=== PATIENT | female | born 1960 | race Caucasian/White ===

== ENCOUNTER 2016-10-26 18:06 | Inpatient (IN) ==
[2016-10-26] MEDS ORDERED: ALBUTEROL/IPRATROPIUM 3 ML NEB RESP TX STA (18:27)
[2016-10-26] MEDS ORDERED: NALOXONE 0.4 MG/ML VIAL IV STA (18:27)
[2016-10-26] MEDS ORDERED: NITROGLYCERIN 2% OINT 1 INCH/GM PACK TOP STA (18:27)
--- NOTE | 2016-10-26 18:35 | Emergency Department Note ---
Arrival - Arrival Chief Complaint: Altered Mental Status Stated Complaint: ALTERED ED Nursing Triage Note: PT BROUGHT BY EMS FOR EVALUATION OF ALTERED MENTAL STATUS SINCE APPROX 1600. REPORTEDLY PT WAS AT [facility] FOR PNEUMONIA, AK, AND CVA? PT LEFT [facility] AMA THIS MORNING. PT WAS PICKED UP AT A FRIENDS HOUSE AROUND 1200 BY FAMILY AND HAS BECOME MORE ALTERED IN THE PAST 2 HOURS. PT'S SPEECH IS SLURRED. NO FACIAL DROOP OR EXTREMITY DEFECIT AT TRIAGE. PT DENIES DRUG USE. Mode of Arrival: Stretcher Time Seen by Provider: 10/26/16 18:27 - History of Present Illness HPI Narrative: This 56-year-old white female presents with a history of leaving [facility] this morning AMA because she states they were filling her with dope. The patient was brought home where the family observed the patient developing increasing lethargy and some slurred speech. At no time did she demonstrate any focal deficit. This is notable in that she left [facility] after being admitted for an AK, stroke, and pneumonia. Currently the patient is oriented 3 but very lethargic and extremely poor as far as any type of history. She does deny cough, shortness of breath, chills, fever, or chest pain. The patient denies any drug or alcohol use since leaving [place]. Although lethargic, she does not appear in any acute medical distress. The daughter subsequently arrived and states that the patient was hallucinating this morning and she was discharged her from [facility] without informing the family. In fact, the patient left the hospital and walked to a friend's house where she was picked up by her son and brought to his house where she subsequently proceeded to decline. The daughter does confirm that the patient apparently had a small stroke, small heart attack, and active pneumonia for which she was admitted Tuesday. Onset (ago): hour(s) (Patient presents several hours after onset of symptom) Allergies/Adverse Reactions: Allergies Allergy/AdvReac Type Severity Reaction Status Date / Time No Known Allergies Allergy Verified 10/26/16 18:21 Home Medications: Home Medications Medication Instructions Recorded Confirmed Type Unable To Obtain [Unable to Obtain] 10/26/16 10/26/16 History Review of System - Review of System 12 point system: reviewed and no additional remarkable complaints except as stated - Review of System Respiratory: Present: as per HPI Cardiovascular: Present: as per HPI Neurological: Present: as per HPI Medical,Surgical,& Family Hx - Medical History Cardio: History of: Hypertension - Social History Smoking Status: Current every day smoker Frequency of Alcohol Use: Occasionally Type of Drug Use: Methamphetamine Exam Physical Examination: GENERAL: Well developed, well nourished white female in no acute distress. HEENT: Normocephalic. No trauma. Moist mucous membranes. EOMI. PERRLA. ENT NML NECK: Supple. No adenopathy. CARDIAC: Regular. No murmurs. Heart rate 92 CHEST: Scattered occasional expiratory rhonchi. No respiratory distress. O2 sat 96% ABDOMEN: Soft. Nontender. Active bowel sounds. EXTREMITIES: No trauma. Normal ROM. No pedal edema. SKIN: No diaphoresis. No rash. NEURO: Alert. Very lethargic but oriented 3. Motor, sensory, vibratory intact. No focal deficits. Vital Signs: Vital Signs Temperature 98.1 F 10/26/16 18:30 Pulse Rate 85 10/26/16 18:45 Respiratory Rate 17 10/26/16 18:45 Blood Pressure 182/88 10/26/16 18:30 O2 Sat by Pulse Oximetry 100 10/26/16 18:45 Results - Labs CBC & BMP: 10/26/16 18:59 - Impressions EKG: Sinus tachycardia at 102 with a normal MI interval and QRS duration. Nonspecific ST changes with no acute injury pattern noted. - Diagnostic Findings Procedure: Chest x-ray: image reviewed by me, report reviewed by me (Minimal atelectasis left lower lung field otherwise unremarkable), CT: image reviewed by me, report reviewed by me (Head: Old lacunar infarcts with no evidence of a recent stroke noted)
[2016-10-26] MEDS ORDERED: NITROGLYCERIN 2% OINT 1 INCH/GM PACK TOP ONE (18:36)
[2016-10-26] MEDS ORDERED: NALOXONE 0.4 MG/ML VIAL ONE (18:36)
[2016-10-26 19:04] LABS: Apearance,Urine Slightly Hazy (Clear); Bilirubin,Urine Negative (Negative); Blood, Urine Small mg/dL (Negative); Glucose,Urine (UA) Negative (Negative); Ketones,Urine Negative (Negative); Mucus,Urine Few /LPF (Occasional); Nitrite,Urine Negative (Negative); Protein,Urine 30 MG/DL; RBC,Urine 2 /HPF (0-4); Squamous Epithelial Cell,Urine Occasional /HPF (0-10); Urine Color Yellow (Yellow); Urine Specific Gravity 1.021 (1.001-1.035); Urine Urobilinogen < 2.0 EU/DL (0.2-1.0); WBC,Urine 3 /HPF (0-6)
[2016-10-26 19:06] LABS: Barbiturates Screen,Urine Negative (Negative); Benzodiazepines Screen,Urine Positive (Negative); Cannabinoid Screen,Urine Negative (Negative); Opiate Screen,Urine Positive (Negative); Phencyclidine Screen,Urine Negative (Negative)
--- NOTE | 2016-10-26 19:19 | XRay Report ---
Referring Physician: Joe Jane Exam: XR chest 1V portable Date: October 26, 2016 at 6:39 PM Reason: Altered mental status Comparison: Chest x-ray portable March 19, 2013 Findings: The cardiac silhouette is upper normal in size. There are minimal opacities within the left lower lung zone, which are most consistent with atelectasis. No pneumothorax or pleural effusion is identified. No acute osseous process is seen. Impression: Minimal atelectasis within the left lower lung zone. PROCEDURE INTERPRETED AT [facility] DEPARTMENT OF RADIOLOGY Final Report Signed by: Dr. Kalin Box
--- NOTE | 2016-10-26 19:33 | EKG Report ---
Stationary ECG Study [facility] ER Test Date: 10/26/2016 7:33:02 PM Pat Name: MARCY FLOWERS Department: Room: Gender: F Color Buffer: : 1960 Requested by: Joe Lanier Order Number: [id number] Reading MD: SALOMON KILLIAN Intervals [place] Rate: 102 P: 63 MA: 129 QRS: 23 QRSD: 90 T: 65 QT: 344 QTc: 403 Interpretive Statements SINUS TACHYCARDIA With first-degree A-V B at 102 bpm Left ventricular Hypertrophy MA WP NONSPECIFIC T-WAVE ABNORMALITY ABNORMAL RHYTHM ECG Electronically Signed On 11-01-16 15:12:52 CDT by SALOMON KILLIAN [email or web address]
[2016-10-26 19:40] LABS: Basophils % 0.5 % (0.0-0.8); Eosinophils # 0.3 10*3/uL (0.0-0.87); Eosinophils % 3.9 % (0.00-10.9); Hematocrit 46.6 VOL% (35.7-47.0); Hemoglobin 15.2 GM/DL (12.0-16.0); Immature Granulocytes % 0.2 %; Immature Granulocytes Absolute 0.02 #; Lymphocytes # 2.3 10*3/uL (1.4-4.0); Lymphocytes % 28.3 % (21.3-54.2); Mean Corpuscular HGB Conc 32.6 GM/DL (32-36); Mean Corpuscular Hemoglobin 27 PG (27-34); Mean Corpuscular Volume 82.8 FL (87-102); Mean Platelet Volume 8.7 FL (9.6-12.0); Monocytes # 0.9 10*3/uL (0.11-0.8); Monocytes % 11.2 % (1.7-12.7); Neutrophils # 4.6 10*3/uL (1.4-7.4); Neutrophils % 55.9 % (38.7-73.9); Platelet Count 318 T/CUMM (130-400); Red Blood Count 5.63 MC/CUMM (3.8-5.5); Red Cell Distribution Width 13.3 % (9.3-17.3); White Blood Count 8.2 T/CUMM (4-12)
--- NOTE | 2016-10-26 19:47 | CT Report ---
Referring physician: Joe Jane Exam: CT brain without contrast Date: October 26, 2016 Comparison: CT brain without contrast March 18, 2013 Reason: Altered mental status The patient is an Emergency Department patient on October 26, 2016. Technique: Axial images of the head were obtained without the use of contrast. Total DLP was 942.4 mGy*cm. Findings: There are small scattered areas of low attenuation within the cerebral white matter bilaterally. This is nonspecific but likely represents chronic microvascular ischemic change. Remote lacunar infarctions are seen within the bilateral basal ganglia and left cerebellum. A small focal hypodensity is also seen at the posterior right frontal lobe on image 20. This is suspected to represent volume averaging artifact. No hydrocephalus or midline shift is present. There is no evidence of recent intracranial hemorrhage, abnormal mass effect or an acute infarction. No acute osseous process is seen. . The mastoid air cells and visualized paranasal sinuses are clear. Impression: 1. No acute intracranial process is identified. 2. There are remote lacunar infarctions within the bilateral basal ganglia and left cerebellum, some of which are not seen on the previous study. Chronic microvascular ischemic change is also suspected and may have progressed. The CT exam was performed using one or more of the following dose reduction techniques: Automated exposure control and adjustment of the mA and/or kV according to patient size. PROCEDURE INTERPRETED AT [facility] DEPARTMENT OF RADIOLOGY Final Report Signed by: Dr. Kalin Box
[2016-10-26 19:52] LABS: PT Patient Result 10.7 SECS; Partial Thromboplastin Time 25.4 SECS (0-40)
[2016-10-26 20:01] LABS: Ammonia 51 UMOL/L (11-32)
[2016-10-26 20:14] LABS: Alanine Aminotransferase 39 U/L (13-56); Albumin 3.8 G/DL (3.4-5.0); Alkaline Phosphatase 91 U/L (45-117); Aspartate Amino Transferase 30 U/L (0-37); Bilirubin,Total < 0.39 MG/DL (0.2-1.0); Blood Urea Nitrogen 16 MG/DL (7-18); Calcium 9.4 MG/DL (8.5-10.1); Free T4 (Free Thyroxine) 1.25 NG/DL (0.76-1.46); Glucose 88 MG/DL (74-106); Osmolality,Calculated 282.1 MOS/KG (273-304); Potassium 3.4 MMOL/L (3.5-5.1); Sodium 142 MMOL/L (136-145); Total Protein 7.7 G/DL (6.4-8.3)
[2016-10-26 20:15] LABS: Troponin I Only 0.722 NG/ML (0.00-0.045)
[2016-10-26] MEDS ORDERED: ASPIRIN 325 MG TABLET PO STA (20:26)
--- NOTE | 2016-10-26 20:34 | Hospitalist History & Physical ---
Assessment and Plan (1) Acute CVA (cerebrovascular accident) Status: Acute Assessment and plan: mri of brain, carotid us, and mra of neck, lipid profile, consult Dr. Zimmerman, asa 325 mg, rehab pt, ot and speech Current Visit: Yes (2) Hypertension Status: Acute Assessment and plan: no beta blockers for now, keep b/p higher due to acute cva Current Visit: Yes (3) Cellulitis Status: Acute Assessment and plan: ancef Current Visit: Yes (4) NSTEMI (non-ST elevated myocardial infarction) Status: Acute Assessment and plan: cardiology to see, serial troponins and ekg Current Visit: Yes (5) Drug addict Status: Acute Assessment and plan: abuse of benzo, norco and amphetamines Current Visit: Yes History of Present Illness Chief complaint: ams History of present illness: Ms. Augustine is a 56 year old female presents with a history of leaving [facility] this morning AMA because she didnt receive any pain meds at [place]. The patient was brought home where the family observed the patient developing increasing lethargy and some slurred speech. UDS positive for opiates, amphetamines and benzos. Son reports difficulty walking. Patient reports nausea and vomiting but ate chicken prior to coming to the hospital. Patient able to answer most questions even though she is slurring her speech due to drugs. She currently denies chest pain but [place] was planning to do a heart cath but indicated they could not because she currently had pneumonia. Patient has a normal white count and a normal chest x-ray at this time. I see no evidence to suggest pneumonia. She does have a place on her right leg a wound that looks superficially infected to me. Son also reports to me that she has recently gained a lot of weight in her abdomen and they did not know why. She is to be a drinker but quit. She also has a history of IV drug abuse in the past. The wound on her leg could be due to skin popping. No other injection sites appreciated. Asked family to spend the night to keep her from leaving AGAINST MEDICAL ADVICE Home Medications Medication Instructions Recorded Confirmed Type Unable To Obtain [Unable to Obtain] 10/26/16 10/26/16 History Allergies Allergy/AdvReac Type Severity Reaction Status Date / Time No Known Allergies Allergy Verified 10/26/16 18:21 Medical,Surgical,& Family Hx - Medical History Cardio: History of: Hypertension Other: History of: Miscellaneous Medical Problems (drug abuse ) - Surgical History Reproductive Surgeries: Surgical HX of;: Breast Surgery (biopsy of left breast benign ), Hysterectomy - Family History Family History: Reports;: Family Diabetes, Family Heart Disease, Family Stroke - Social History Smoking Status: Current every day smoker Frequency of Alcohol Use: Occasionally Type of Drug Use: Opiates, Methamphetamine, Intravenous Drug Use, Prescription Drug Abuse Marital Status: Single Lives With:: Alone Functional capacity: independent ambulation - Constitutional Constitutional: Present: fatigue, headache(s). Absent: fever(s) - EENT Eyes: Absent: blurry vision, diplopia Ears: Absent: decreased hearing, ear discharge Nose, mouth and throat: Present: headache(s). Absent: sore throat - Cardiovascular Cardiovascular: Present: dyspnea, dyspnea on exertion. Absent: chest pain at rest, edema - Respiratory Respiratory: Present: cough, dyspnea, dyspnea on exertion - Gastrointestinal Gastrointestinal: Present: constipation, nausea, vomiting. Absent: diarrhea - Genitourinary Genitourinary: Absent: difficulty urinating, dysuria - Musculoskeletal Musculoskeletal: Present: arthralgias, back pain - Neurological Neurological: Present: abnormal gait, abnormal speech, focal weakness, headache( s). Absent: syncope - Psychiatric Psychiatric: Present: anxiety, depression - Endocrine Endocrine: Present: fatigue. Absent: cold intolerance, heat intolerance - Hematologic/Lymphatic Hematologic/Lymphatic: Present: easy bleeding, easy bruising Exam - Constitutional Vitals: Period Temp Pulse Resp BP Sys/Joe Pulse Ox Last 24 Hr 98.1 F-98.1 F 83-95 13-19 164-182/82-96 96-100 General appearance: normal weight, no acute distress - Head Head exam: Present: normal inspection, normocephalic - Eye Eye exam: Present: EOMI. Absent: scleral icterus Pupils: Present: BERNABE, normal accommodation - ENT ENT exam: Present: normal exam, normal external ear exam - Neck Neck exam: Absent: lymphadenopathy, thyromegaly - Respiratory Respiratory exam: Present: clear to auscultation bilaterally. Absent: rhonchi, wheezes - Cardiovascular Cardiovascular exam: Present: regular rate and rhythm. Absent: systolic murmur - GI/Abdominal GI/Abdominal exam: Present: normal bowel sounds, soft. Absent: tenderness - Extremities Exam Extremities exam: Present: normal inspection, normal capillary refill - Neurological Exam Neurological exam: Present: alert, oriented X3, CN II-XII intact, motor sensory deficit (left sided weakness with babinski on left ), reflexes normal - Psychiatric Psychiatric exam: Present: normal affect, normal mood - Skin Skin exam: Present: normal color, warm Results - Labs CBC & BMP: 10/26/16 18:59 10/26/16 18:59 Lab Results: I have reviewed the past 24 hour labs - EKG EKG shows: tachycardia, sinus rhythm - Diagnostic Findings Procedure: CT: report reviewed by me (bilateral BG infarcts and left cerebellum )
[2016-10-26 23:08] LABS: PT Patient Result 11.1 SECS; Partial Thromboplastin Time 30.9 SECS (0-40)
[2016-10-26] MEDS ORDERED: LABETALOL 20 MG/4 ML SYRINGE IV PRN (23:43)
[2016-10-26] MEDS ORDERED: POTASSIUM CHLORIDE 20 MEQ TABLET PO STA (23:46)
[2016-10-27] MEDS: SODIUM CHLORIDE 0.9% 1,000 ML IV SCH ×3 (00:17→17:53)
[2016-10-27] MEDS: ENOXAPARIN 40 MG/0.4 ML SYRINGE SUBCUT SCH ×2 (00:24→21:24)
[2016-10-27] MEDS: ATORVASTATIN 40 MG TABLET PO SCH ×2 (00:24→21:25)
--- NOTE | 2016-10-27 00:51 | EKG Report ---
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
[2016-10-27 05:28] LABS: Hepatitis A Ab IgM Quant < 0.02 Index; Hepatitis A Ab IgM Result Negative (Negative); Hepatitis B Core IgM Quant 0.26 Index; Hepatitis B Core IgM Result Negative (Negative); Hepatitis B Surface Ag Result Negative (Negative); Hepatitis C Virus Ab Quant 0.16 Index; Hepatitis C Virus Ab Result Negative (Negative)
[2016-10-27 06:27] LABS: Risk Ratio 2.62; VLDL CHOLESTEROL 14.8 MG/DL
--- NOTE | 2016-10-27 06:32 | EKG Report ---
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
--- NOTE | 2016-10-27 09:39 | Ultrasound Report ---
Carotid artery ultrasound Indication: Weakness, altered mental status Comparison: None available Color Doppler flow and spectral analysis was performed. Findings: Small amount of atherosclerotic plaque is present in both proximal internal carotid arteries. The peak systolic velocity in the right is 66 cm/s . Ratio of flow is 1.1. The peak systolic velocity in the left is 85 cm/s . Ratio of flow is 1.5 Bilateral antegrade vertebral flow is seen. Impression: No evidence of hemodynamically significant stenosis is seen, 0-49% estimated stenosis. Consensus conference on the carotid ultrasound criteria used. Ultrasound images were captured and stored. PROCEDURE INTERPRETED AT [facility] DEPARTMENT OF RADIOLOGY Final Report Signed by: Dr. Sim Cerda
--- NOTE | 2016-10-27 10:04 | Cardiology Consult Note ---
Assessment and Plan (1) Elevated troponin Status: Acute Assessment and plan: Troponins are flat in question whether this is secondary to recent acute cardiac event or not. We will await records from [facility]. Current Visit: Yes (2) Acute CVA (cerebrovascular accident) Status: Acute Assessment and plan: This is per history and does have a little left-sided weakness. We will await records from [facility] Current Visit: Yes (3) Hypertension Status: Acute Assessment and plan: We'll place the patient on some medications for this. Current Visit: Yes (4) Drug addict Status: Acute Assessment and plan: She confesses to using illicit drugs including methamphetamines as well as pain medications and use marijuana previously. Current Visit: Yes (5) Dyslipidemia Status: Acute Assessment and plan: Her lipid levels are certainly of dyslipidemic if she has vascular disease. She is on atorvastatin according the chart. Current Visit: Yes History of Present Illness - Data of Consult Patient: new to practice Consult date: 10/27/16 Requesting Physician: Karin Hodges - Consult Narrative Reason for consult: chest pain History of present illness: Ms. Augustine is a 56 year old female who is extremely poor historian and slowed speech. This may be related to either recent CVA or her drug abuse. The patient states that she was at [place] this past Tuesday and admitted with a stroke and myocardial infarction. She states while she was in the hospital she developed pneumonia. She did not have a cardiac catheterization and was told that they could not do a catheterization because of her stroke. She left [facility] apparently because she wanted to see her son or for some other reason. She though presented here yesterday afternoon he was admitted because of her chest pain history. Her troponin was trivially elevated and has been flat for 3 samples. Her CPK is minimally elevated at 198. MB fraction is slightly elevated. Her ECG with nondiagnostic T-wave abnormalities but no acute changes. She has no prior history that she is able to give of having cardiac disease or cardiac procedures. CT of the head or possible old changes but no acute changes per report. Carotid Doppler without any hemodynamically significant stenosis. Lab work with potassium of 3.4, cardiac enzymes as noted. CBC is unremarkable. Urine drug screen positive for opiates and methamphetamines as well as benzodiazepines. This time we are attempting to get records from [facility]. Certainly with her present status and situation no further evaluation cardiac standpoint is needed until after we've had a chance to review studies from [facility]. She certainly is a noncompliant patient and would not be a patient at one would want to do a cardiac catheterization in place on antiplatelet therapies post intervention. She would be a high risk patient for this kind of intervention. CC: Karin Hodges MD - Home Medications and Allergies Home Medications: Home Medications Medication Instructions Recorded Confirmed Type Unable To Obtain [Unable to Obtain] 10/26/16 10/26/16 History Allergies/Adverse Reactions: Allergies Allergy/AdvReac Type Severity Reaction Status Date / Time No Known Allergies Allergy Verified 10/26/16 18:21 Review of systems: Constitutional: Denies anorexia, chills, fever, frequent falls, night sweats, weight gain, weight loss. She does complain that she just feels fatigued is has headaches but this may related to chronic neck pain. Eyes: Denies visual changes or loss of vision Ears: Denies decreased hearing, vertigo Nose, mouth and throat: Denies dysphagia, epistaxis, tongue swelling, Neck: Denies thyromegaly or masses. Chronic neck pain. Cardiovascular: as per HPI Respiratory: Denies cough, hemoptysis, wheezing. She does complain of non- descriptive dyspnea Gastrointestinal: Denies abdominal pain, dyspepsia, dysphagia, hematemesis, hematochezia, melena. Complains of Nausea, vomiting constipation Genitourinary: Denies dysuria, hematuria, nocturia Musculoskeletal: Complains of chronic neck and back pain. Neurological: denies confusion, convulsions, syncope. Does complain and demonstrates speech difficulty as well as just generalized weakness. Obvious gait issues at this time. Psychiatric: History of anxiety and depressive issues. History of drug abuse. Endocrine: Denies cold intolerance,heat intolerance. Complains of fatigue. Hematologic/Lymphatic: Denies easy bleeding, easy bruising Dermatologic: Denies Rash Medical,Surgical,& Family Hx - Medical History Cardio: History of: Hypertension, [place] Neurology: History of: Cerebrovascular Accident Other: History of: Miscellaneous Medical Problems (drug abuse ) - Surgical History Thoracic Surgeries: Patient denies;: Lobectomy Neurologic Surgeries: Patient denies: Neurologic Surgery Reproductive Surgeries: Surgical HX of;: Breast Surgery (biopsy of left breast benign ), Gynecologic Surgery (family for ovarian cancer), Hysterectomy ( apparently for ovarian cancer) - Family History Family History: Reports;: Family Diabetes, Family Heart Disease, Family Stroke - Social History Smoking Status: Current every day smoker (smokes a pack a day) Frequency of Alcohol Use: Occasionally Type of Drug Use: Opiates, Marijuana, Methamphetamine, Intravenous Drug Use, Prescription Drug Abuse Physical Examination Vital Signs Temp Pulse Resp BP Pulse Ox 98.1 F 92 H 16 173/82 96 10/26/16 18:06 10/26/16 18:06 10/26/16 18:06 10/26/16 18:06 10/26/16 18:06 Other: General appearance: Over weight, no acute distress but she is extremely poor historian and is somewhat lethargic Head exam: normal inspection, atraumatic Eye exam: Pupils are equal and reactive. EOMI. There is no trauma. Ear exam: Anatomically normal. Normal auditory acuity to conversation. Oral exam: No significant oral lesions. Neck exam: normal inspection no JVD. No carotid bruit. Trachea is in midline. Respiratory exam: clear to auscultation bilaterally posteriorly and anteriorly with good air movement. No rales, rhonchi or wheezes. Cardiovascular exam: regular rate and rhythm, no murmur or gallop or rub. No precordial lift. No bruits over the major arteries. Chest wall/torso: Anatomically normal. No tenderness, deformity Peripheral Pulses: 2+ throughout. GI/Abdominal exam: normal bowel sounds, soft and nontender, no abdominal bruits or pulsatile masses. Musculoskeletal/Extremities exam: normal inspection without edema or cyanosis. No deformities or trauma. Neurological exam: alert, oriented X3. She is quite though lethargic and slow to speech. There may be some left-sided weakness. Psychiatric exam: She is a little lethargic. Skin exam: normal color, warm. Result/EKG - Labs CBC & BMP: 10/26/16 18:59 10/26/16 18:59 Lab Results: I have reviewed the past 24 hour labs Labs: Laboratory Results - last 24 hr 10/26/16 10/26/16 10/26/16 22:43 22:43 23:46 INR 1.0 PT Patient/Control Mix 11.1 Circ Anticoag PTT 30.9 D Hemoglobin A1c Ammonia 21 Troponin I Triglycerides Cholesterol LDL Cholesterol VLDL Cholesterol HDL Cholesterol Heart Disease Risk Ratio Free T4 TSH 3rd Generation 0.936 Hepatitis A IgM Ab Hep Bs Antigen Hep B Core IgM Ab Hepatitis C Antibody 10/26/16 10/26/16 10/26/16 23:46 23:46 23:46 INR PT Patient/Control Mix Circ Anticoag PTT Hemoglobin A1c 6.0 Ammonia Troponin I Triglycerides Cholesterol LDL Cholesterol VLDL Cholesterol HDL Cholesterol Heart Disease Risk Ratio Free T4 1.24 TSH 3rd Generation Hepatitis A IgM Ab Negative Hep Bs Antigen Negative Hep B Core IgM Ab Negative Hepatitis C Antibody Negative 10/27/16 10/27/16 10/27/16 00:06 00:06 05:24 INR PT Patient/Control Mix Circ Anticoag PTT 31.3 Hemoglobin A1c Am[place]ia Troponin I 0.654 H Triglycerides 74 Cholesterol 160 LDL Cholesterol 85.0 VLDL Cholesterol 14.8 HDL Cholesterol 61 H Heart Disease Risk Ratio 2.62 Free T4 TSH 3rd Generation Hepatitis A IgM Ab Hep Bs Antigen Hep B Core IgM Ab Hepatitis C Antibody 10/27/16 05:24 INR PT Patient/Control Mix Circ Anticoag PTT Hemoglobin A1c Am[place]ia Troponin I 0.672 H Triglycerides Cholesterol LDL Cholesterol VLDL Cholesterol HDL Cholesterol Heart Disease Risk Ratio Free T4 TSH 3rd Generation Hepatitis A IgM Ab Hep Bs Antigen Hep B Core IgM Ab Hepatitis C Antibody - Impressions Impressions: ECG with sinus rhythm with some nonspecific T-wave abnormalities but no acute changes. Quality Measures - Stroke Onset of Symptoms Date: 10/25/16 Specialty Discharge - Follow Up or Referrals
[2016-10-27] MEDS: LOSARTAN 50 MG TABLET PO SCH (13:33)
--- NOTE | 2016-10-27 14:33 | Magnetic Resonance Report ---
MR carotid arteries Indication: Altered mental status, weakness Technique: 2-D [id number] imaging through the carotid arteries was performed without and with intravenous contrast. Contrast dose was cc Dotarem. Computer reformatting of the carotid arteries is generated. Findings: The carotid arteries are normal in caliber. No evidence of stenosis or vessel cutoff is seen. No filling defects are identified. Vertebral arteries appear within normal limits. No evidence of vascular malformation or aneurysm is seen. Impression: No evidence of carotid stenosis or other abnormality demonstrated. PROCEDURE INTERPRETED AT [facility] DEPARTMENT OF RADIOLOGY Final Report Signed by: Dr. Sim Cerda
--- NOTE | 2016-10-27 14:41 | Magnetic Resonance Report ---
MRI brain without and with contrast Indication: Left-sided weakness Comparison: None available Technique: Axial sagittal and coronal imaging of the brain is performed without and with intravenous contrast. T1, T2, FLAIR and diffusion weighted sequences are performed. Contrast dose is 20 cc Dotarem. Findings: Small areas of restricted diffusion are seen in both superior basal ganglia. These areas have T2 signal hyperintensity. No other evidence of restricted diffusion seen. No evidence of intracranial hemorrhage, mass, mass effect or midline shift is seen. Other areas of white matter T2 signal hyperintensity without restricted diffusion are present in both cerebral hemispheres. Remaining brain parenchyma has normal signal and differentiation. The ventricles and cisterns are appropriate in caliber. Posterior fossa, mid brain and pituitary gland appear within normal limits. No evidence of cranial or skull base abnormality seen. No areas of abnormal enhancement are present on the postcontrast images when compared to the precontrast study Impression: Small areas of restricted diffusion bilaterally consistent with lacunar infarcts, likely greater than 8 hours age. PROCEDURE INTERPRETED AT [facility] DEPARTMENT OF RADIOLOGY Final Report Signed by: Dr. Sim Cerda
--- NOTE | 2016-10-27 15:24 | Hospitalist Progress Note ---
Assessment and Plan (1) Acute CVA (cerebrovascular accident) Status: Acute Assessment and plan: mri of brain shows bilateral lacunar infarcts but no clear evidence of carotid disease. Questionable embolic continue aspirin. Will await input from Dr. Zimmerman. Current Visit: Yes (2) Hypertension Status: Acute Assessment and plan: cont to keep blood pressure higher Current Visit: Yes (3) Cellulitis Status: Acute Assessment and plan: improving with ancef Current Visit: Yes (4) NSTEMI (non-ST elevated myocardial infarction) Status: Acute Assessment and plan: Dr. Correa would like to see records from [place], troponins trending down Current Visit: Yes (5) Drug addict Status: Acute Assessment and plan: abuse of benzo, norco and amphetamines Current Visit: Yes Hospitalist: Subjective Interval history: Patient still slurring speech but her weakness is better. No chest pain this morning. Will await input from Dr. Zimmerman ?embolic Exam - Constitutional Vitals: Period Temp Pulse Resp BP Sys/Joe Pulse Ox Last 24 Hr 98.1 F-98.6 F 76-88 18-20 152-195/74-92 96-99 Exam: Heart Rate-[RRR] Lungs-[CTAB] GI-[+bs soft, NT] Ext-[no edema] Neuro [Motor 5/5 but weak], [alert and oriented times 2] psych [normal mood and affect] General [no acute distress] Results - Labs CBC & BMP: 10/26/16 18:59 10/26/16 18:59 Lab Results: I have reviewed the past 24 hour labs - Diagnostic Findings Procedure: MRI: report reviewed by me (Bilateral cerebral infarcts, MRA shows no stenosis.), Ultrasound: report reviewed by me (No evidence of significant carotid stenosis) Quality Measures - Stroke Onset of Symptoms Date: 10/25/16 Specialty Discharge - Follow Up or Referrals
--- NOTE | 2016-10-27 16:10 | Neurology Consult Note ---
History of Present Illness History of present illness: Ms. Augustine is a 56 year old right-handed white lady presents with a history of leaving [facility] this morning AMA because she didnt receive any pain meds at [facility]. The patient was brought home where the family observed the patient developing increasing lethargy and some slurred speech. UDS positive for opiates, amphetamines and benzos. Son reports difficulty walking. Patient reports nausea and vomiting but ate chicken prior to coming to the hospital. Patient able to answer most questions even though she is slurring her speech. She used to be a drinker but quit. She also has a history of IV drug abuse in the past. MRI of the brain revealed bilateral biliary subacute to acute infarct and a small tiny acute infarct in the left frontal lobe. Home Medications Medication Instructions Recorded Confirmed Type Unable To Obtain [Unable to Obtain] 10/26/16 10/26/16 History Allergies Allergy/AdvReac Type Severity Reaction Status Date / Time No Known Allergies Allergy Verified 10/26/16 18:21 12 point system: reviewed and no additional remarkable complaints except as stated Medical,Surgical,& Family Hx - Medical History Cardio: History of: Hypertension, [place] Neurology: History of: Cerebrovascular Accident Other: History of: Miscellaneous Medical Problems (drug abuse ) - Surgical History Thoracic Surgeries: Patient denies;: Lobectomy Neurologic Surgeries: Patient denies: Neurologic Surgery Reproductive Surgeries: Surgical HX of;: Breast Surgery (biopsy of left breast benign ), Gynecologic Surgery (family for ovarian cancer), Hysterectomy ( apparently for ovarian cancer) - Family History Family History: Reports;: Family Diabetes, Family Heart Disease, Family Stroke - Social History Smoking Status: Current every day smoker (smokes a pack a day) Frequency of Alcohol Use: Occasionally Type of Drug Use: Opiates, Marijuana, Methamphetamine, Intravenous Drug Use, Prescription Drug Abuse Exam - Constitutional Vitals: Period Temp Pulse Resp BP Sys/Joe Pulse Ox Last 24 Hr 98.1 F-98.6 F 76-88 18-20 152-195/74-92 96-99 Exam: GENERAL: Patient is in no acute distress. NECK: Neck is supple. There is no JVD. No carotid bruits present. No thyroid masses. CVS: First and second heart sounds are normal. There is no S3 present. Regular rate and rhythm. RESPIRATORY: Lungs are clear to auscultation without any rales or rhonchi. ABDOMEN: Soft and non-tender. Bowel sounds are present. There is no hepatosplenomegaly. EXT: There is no palpable edema. Peripheral pulses are present. Skin: No rashes Central Nervous system: General: Alert, awake and Oriented x 3 Speech: Fluent, dysarthric Comprehension: Intact and normal Facial expressions: Normal Cranial Nerves: CN1/Olfactory: Normal CN II/ Optic: Normal, Visual Chavez unreliable CN III, and : BERNABE & EOMI CN V: Normal & intact CN VII: face is symmetric CNVIII: Normal CN XI/X/XI/XII: Intact and Normal Motor: Bulk and Tone is normal. Strength in the right 3-4/5 Strength in the left 3-4/5 Sensory: Grossly intact for all the modalities of PP, LT and temp sense Reflexes: 1+ and symmetrical Cerebellar function: Slow finger to nose and heel to dunlap testing. Toes: Equivocal Gait: Not tested at this Results - Labs CBC & BMP: 10/26/16 18:59 10/26/16 18:59 Assessment and Plan (1) Status: Acute Assessment and plan: Plavix 75 mg daily Echocardiogram Lipid panel Consult PT OT and ST Consult TMR Current Visit: Yes Specialty Discharge - Follow Up or Referrals
[2016-10-27] MEDS ORDERED: ACETAMINOPHEN 325 MG TABLET PO PRN (20:14)
--- NOTE | 2016-10-27 21:18 | ECHO Report ---
Brianna Augustine Exam Date: 10/27/2016 11:18 Referring Physician: Technologist: Jolynn Elizabeth RDCS Age: 56 Ht (in): 63 Wt (lb): 160 Gender: F Exam Location: [facility] Echo Indications: Acute CVA, Chest pain, unspecified, Elevated troponin, Essential (primary) hypertension, Drug abuse, Dyslipidemia, Nicotine dependence, cigarettes, uncomplicated BP: 167 / 74 HR: 90 Rhythm: Sinus Technical Quality: Fair IMPRESSIONS 1. Left ventricle is normal size and normal systolic function ejection fraction 60%. 2. Left atrium is minimally dilated. 3. Right-sided chambers are normal size. 4. Mild posterior mitral annular calcification otherwise mitral valve is anatomically functionally normal. 5. Other cardiac valves are normal anatomically and functionally. MEASUREMENTS (Male / Female) Normal Values 2D ECHO LV Diastolic Diameter PLAX 4.6 cm 4.2 - 5.9 / 3.9 - 5.3 cm LV Systolic Diameter PLAX 3.1 cm LV Fractional Shortening PLAX 33.6 % IVS Diastolic Thickness 0.9 cm 0.6 - 1.0 / 0.6 - 0.9 cm LVPW Diastolic Thickness 1.0 cm 0.6 - 1.0 / 0.6 - 0.9 cm RV Internal Dim ED PLAX 2.3 cm Aortic Root Diameter 3.0 cm LA Systolic Diameter LX 4.1 cm 3.0 - 4.0 / 2.7 - 3.8 cm FINDINGS Left Ventricle Normal left ventricular cavity size. Normal left ventricular wall thickness. Left ventricular ejection fraction is estimated at 60 %. Right Ventricle The right ventricle is normal in size and function. Right Atrium The right atrium is normal in size. Left Atrium The left atrium is mildly enlarged. Mitral Valve Morphologically normal mitral valve. Mild mitral annular calcification. Trace mitral valve regurgitation. Aortic Valve Aortic valve sclerosis without stenosis or regurgitation. Tricuspid Valve Morphologically normal tricuspid valve without stenosis or regurgitation. Pulmonary artery systolic pressure is normal. Pulmonic Valve Morphologically normal pulmonic valve. Trace pulmonary valve regurgitation. Pericardium Normal pericardium without effusion. Aorta Normal ascending aorta dimension. Lalo Correa MD (Electronically Signed) Final Date: 27 Oct 2016 21:16
[2016-10-28] MEDS ORDERED: ZALEPLON 5 MG CAPSULE PO PRN (00:11)
[2016-10-28 06:12] LABS: Basophils # 0.1 10*3/uL (0.0-0.2); Basophils % 0.7 % (0.0-0.8); Eosinophils # 0.4 10*3/uL (0.0-0.87); Eosinophils % 4.7 % (0.00-10.9); Hematocrit 38.6 VOL% (35.7-47.0); Immature Granulocytes % 0.4 %; Immature Granulocytes Absolute 0.04 #; Lymphocytes # 3.2 10*3/uL (1.4-4.0); Lymphocytes % 35.9 % (21.3-54.2); Mean Corpuscular HGB Conc 32.6 GM/DL (32-36); Mean Corpuscular Hemoglobin 27 PG (27-34); Mean Corpuscular Volume 83.9 FL (87-102); Mean Platelet Volume 8.9 FL (9.6-12.0); Monocytes % 11.2 % (1.7-12.7); Neutrophils # 4.2 10*3/uL (1.4-7.4); Neutrophils % 47.1 % (38.7-73.9); Red Cell Distribution Width 12.9 % (9.3-17.3); White Blood Count 8.9 T/CUMM (4-12)
[2016-10-28 06:31] LABS: Hemoglobin 12.6 GM/DL (12.0-16.0); Platelet Count 391 T/CUMM (130-400)
[2016-10-28 06:47] LABS: Calcium 8.6 MG/DL (8.5-10.1); Magnesium 1.9 MG/DL (1.8-2.4); Osmolality,Calculated 281.1 MOS/KG (273-304); Potassium 3.6 MMOL/L (3.5-5.1)
[2016-10-28] MEDS: LOSARTAN 50 MG TABLET PO SCH (08:32)
[2016-10-28] MEDS ORDERED: CLOPIDOGREL 75 MG TABLET PO SCH (09:00)
--- NOTE | 2016-10-28 10:51 | Discharge Summary ---
Hospital Course - Hospital Course Hospital Course: Ms. Augustine is a 56 year old female presents after leaving [facility] hospital AMA because she didnt receive any pain meds at [facility]. Patient developed slurred speech and difficulty walking. [place] [facility] [place] UDS positive for opiates, amphetamines and benzos. Patient's family also reports that she was diagnosed with a heart attack at [facility] but heart cath had not been done because they told her she had pneumonia. We reviewed records from [facility]. They felt that her elevated troponins were due to demand ischemia secondary to amphetamine toxicity. I saw no evidence of pneumonia on chest x- ray. I was concerned about an acute CVA. Consult Dr. Zimmerman and started her on aspirin. MRI shows bilateral lacunar infarcts and MRA and carotid ultrasound showed no evidence of disease. Dr. Zimmerman recommended changing her to Plavix. Echocardiogram showed an EF of 60% without any evidence of vegetation. Serial cardiac enzymes were mildly elevated. Patient is asymptomatic. Patient stroke will need to stabilize before proceeding with any further cardiac workup. I will have her follow-up to see cardiology in [address] Correa has seen her in the hospital and will follow her in the office. She will remain on Plavix. I told her to avoid using amphetamines and cocaine and other substances which may or may cause her have another stroke. Patient's blood pressure is high and she was started on losartan. She also had an area of cellulitis on her right leg which improved with Ancef. She will finish 5 more days of Keflex. Patient also reports that she has fibrocystic breast disease and is due for a mammogram. We will set that up as an outpatient. I told her to reapply for Medicaid due to her acute hospital stay. - Time spent with patient Time with patient DS: Greater than 30 minutes (55 min) Diagnosis - Discharge Diagnosis (1) Acute CVA (cerebrovascular accident) Status: Acute (2) Hypertension Status: Acute (3) Cellulitis Status: Acute (4) NSTEMI (non-ST elevated myocardial infarction) Status: Acute (5) Drug addict Status: Acute Specialty Discharge - Follow Up or Referrals Discharge Plan - Discharge Data Disposition: Disch To Home/Self Care Condition at Discharge: Stable Discharge Diet: heart healthy Activity: resume usual activities as tolerated Hygiene: no restrictions Weight Bearing at Discharge: full weight bearing - Discharge Medications New Atorvastatin [Lipitor] 80 mg PO BEDTIME #60 tablet Clopidogrel [Plavix] 75 mg PO DAILY #30 tablet Losartan [Cozaar] 50 mg PO BID #60 tablet cephALEXin [Keflex] 500 mg PO BID #10 capsule - Follow Up or Referral Follow Up: [facility] [Provider Group] - 2 Weeks Lalo Correa MD [Physician] - 1 Month - Forms/Instructions Instructions: Myocardial Infarction (GEN), Coronary Artery Disease (GEN), Heart Healthy Diet (GEN) Additional Discharge Instructions: 1 [facility] visit for speech therapy Exam - Constitutional Vitals: Period Temp Pulse Resp BP Sys/Joe Pulse Ox Last 24 Hr 97 F-98.8 F 65-88 16-20 159-195/74-92 97-100 General appearance: normal weight, no acute distress - Respiratory Respiratory exam: Present: clear to auscultation bilaterally. Absent: rhonchi, wheezes - Cardiovascular Cardiovascular exam: Present: regular rate and rhythm. Absent: systolic murmur - GI/Abdominal GI/Abdominal exam: Present: normal bowel sounds, soft. Absent: tenderness - Extremities Exam Extremities exam: Present: normal inspection, normal capillary refill - Neurological Exam Neurological exam: Present: alert, oriented X3 - Psychiatric Psychiatric exam: Present: normal affect, normal mood Discharge Results Labs on day of discharge: Labs from last 24 hours 10/28/16 10/28/16 04:04 04:04 WBC 8.9 RBC 4.60 Hgb 12.6 D Hct 38.6 MCV 83.9 L MCH 27 MCHC 32.6 RDW 12.9 Plt Count 391 D MPV 8.9 L Neut % (Auto) 47.1 Lymph % (Auto) 35.9 [place] % (Auto) 11.2 Eos % (Auto) 4.7 Baso % (Auto) 0.7 Neut # (Auto) 4.2 Lymph # (Auto) 3.2 [place] # (Auto) 1.0 H Eos # (Auto) 0.4 Baso # (Auto) 0.1 Immature Gran % 0.4 Nucleated RBC % 0.0 Immature Gran # 0.04 Nucleated RBCs # 0.00 Sodium 142 Potassium 3.6 Chloride 105 Carbon Dioxide 28 Anion Gap 12.6 BUN 13 Creatinine 0.80 GFR Calculation 83 BUN/Creatinine Ratio 16.00 Glucose 86 Calculated Osmolality 281.1 Calcium 8.6 Magnesium 1.9 DS: Provider Date of admission: 10/26/16 20:25 Primary care physician: . No PCP Attending physician on admission: Karin Hodges MD Consults: 10/26/16 23:43 Consult to Case Mgmt/Social Srvs [CONS] Routine Reason for Case Mgmt/Social Srvs: Discharge Planning Consult to Occupational Therapy [CONS] Routine Reason for Occupational Therapy: Evaluate and Treat Consult Comment: Stroke Consult to Physical Therapy [CONS] Routine Reason for Physical Therapy: Evaluate and Treat Consult Comment: stroke Consult to Physician [CONS] Routine Comment: cva Consulting Provider: Bk Zimmerman Consult to Specialist Group: Neurology Person Notified: Jaimie chery Date Notified: 10/27/16 Time Notified: 08:30 Consult to Physician [CONS] Routine Comment: elevated troponin recent infarct Consulting Provider: Lalo Correa Person Notified: Sofie Date Notified: 10/27/16 Time Notified: 07:39 Consult to Speech Therapy [CONS] Routine Reason for Speech Therapy: CVA Consult Comment: with/without possible aspiration 10/27/16 06:25 Consult to Cardiac Rehabilitation [CONS] Routine Reason for Cardiac Rehabilitation: Risk Factor Modification 10/28/16 10:24 Consult to Case Mgmt/Social Srvs [CONS] Routine Reason for Case Mgmt/Social Srvs: Home Health Consult Comment: Speech Therapy,Physical Therapy; Eval and Treat Discharging clinician: Karin Hodges MD
[2016-10-28 11:42] VITALS: BP 198/108
[2016-10-28] MEDS ORDERED: amLODIPine 5 MG TABLET PO ONE (12:10)
--- NOTE | 2016-11-04 12:17 | Physician Query Form ---
CLICK EDIT DOCUMENT TO SELECT QUERY ANSWER --> OK --> SIGN Letty Baxter RN, CCDS Certified Clinical [employer] W) [phone] (f) [phone] [email or web address] PROVIDERS: Make your selection(s) from the choices in EACH section by typing an "x" and enter comments in the comment section. Please use your independent medical judgment in providing your response. This request does not imply that any particular answer is desired or expected. CLINICAL INDICATORS: (Providers should not edit this section) The below diagnosis was documented in the record, but is not consistently noted in subsequent documentation. The medical record indicates that the patient was admitted a CVA, Cardiology Consult "troponin was trivially elevated and has been flat for 3 samples", "CPK is minimally elevated at 198", "MB fraction is slightly elevated" & "ECG with nondiagnostic T-wave abnormalities but no acute changes". -"NSTEMI (non-ST elevated myocardial infarction)" Diagnosis: "NSTEMI (non-ST elevated myocardial infarction)" Please clarify the following: ( ) The above diagnosis was monitored, evaluated, and/or treated and is a confirmed diagnosis ( ) The above diagnosis was ruled out ( ) The above diagnosis is still a likely, suspected, probable diagnosis ( x) Other, please specify: demand ischemia ( ) Clinically unable to determine COMMENTS: PLEASE ALSO DOCUMENT RESPONSE IN PROGRESS NOTES AND/OR DISCHARGE SUMMARY Use of terms such as suspected, likely, or probable (associated with a specific diagnosis that is being evaluated, monitored, or treated as if it exists) are acceptable and can be restated in the discharge summary if not ruled out. MTDD
== END 2016-10-28 13:42 | disposition home or self-care (01) | DRG 65 ==
LOC: EDBD → EDUNIT# → N.ED 18:06 → N.EDINP 20:25 → N.TELES 20:52
PROVIDERS: ADMIT Internal Medicine; ATTEND Internal Medicine

== ENCOUNTER 2018-05-25 21:27 | Inpatient (IN) ==
[2018-05-25 22:25] LABS: Basophils # 0.1 10*3/uL (0.0-0.2); Basophils % 0.7 % (0.0-0.8); Eosinophils # 0.4 10*3/uL (0.0-0.87); Eosinophils % 3.9 % (0.00-10.9); Hematocrit 44.4 VOL% (35.7-47.0); Hemoglobin 14.4 GM/DL (12.0-16.0); Immature Granulocytes % 0.3 %; Immature Granulocytes Absolute 0.03 #; Lymphocytes # 2.9 10*3/uL (1.4-4.0); Lymphocytes % 31.8 % (21.3-54.2); Mean Corpuscular HGB Conc 32.4 GM/DL (32-36); Mean Corpuscular Hemoglobin 28 PG (27-34); Mean Corpuscular Volume 85.7 FL (87-102); Mean Platelet Volume 8.5 FL (9.6-12.0); Monocytes # 0.8 10*3/uL (0.11-0.8); Monocytes % 9.2 % (1.7-12.7); Neutrophils # 4.9 10*3/uL (1.4-7.4); Neutrophils % 54.1 % (38.7-73.9); Platelet Count 350 T/CUMM (130-400); Red Blood Count 5.18 MC/CUMM (3.8-5.5); Red Cell Distribution Width 12.7 % (9.3-17.3)
[2018-05-25 22:40] LABS: INR 0.9; Partial Thromboplastin Time 27.2 SECS (0-40)
[2018-05-25 23:12] LABS: Albumin 3.9 G/DL (3.4-5.0); Bilirubin,Total 0.4 MG/DL (0.2-1.0); Calcium 8.6 MG/DL (8.5-10.1); Osmolality,Calculated 280.5 MOS/KG (273-304); Potassium 3.3 MMOL/L (3.5-5.1); Total Protein 8.1 G/DL (6.4-8.3)
[2018-05-26] MEDS ORDERED: LABETALOL 20 MG/4 ML SYRINGE IV PRN (01:14)
[2018-05-26] MEDS: POTASSIUM CHLORIDE INJ 10 MEQ in SODIUM CHLORIDE 0.45% 1,000 ML IV SCH ×2 (03:16→14:57)
[2018-05-26 06:07] LABS: Barbiturates Screen,Urine Negative (Negative); Benzodiazepines Screen,Urine Negative (Negative); Cannabinoid Screen,Urine Negative (Negative); Opiate Screen,Urine Positive (Negative); Phencyclidine Screen,Urine Negative (Negative)
[2018-05-26] MEDS: ENOXAPARIN 40 MG/0.4 ML SYRINGE SUBCUT SCH (08:18)
[2018-05-26] MEDS: ASPIRIN 300 MG SUPP RECTAL SCH (08:18)
[2018-05-26 08:42] LABS: Risk Ratio 2.96; VLDL CHOLESTEROL 15.4 MG/DL
[2018-05-26] MEDS: NICOTINE 21 MG/24 HR PATCH TRANSDERM SCH (14:58)
[2018-05-26] MEDS: ROSUVASTATIN 20 MG TABLET PO SCH (20:34)
[2018-05-27] MEDS: LABETALOL 20 MG/4 ML SYRINGE IV PRN ×2 (00:38→19:29)
[2018-05-27] MEDS: POTASSIUM CHLORIDE INJ 10 MEQ in SODIUM CHLORIDE 0.45% 1,000 ML IV SCH ×3 (00:45→19:23)
[2018-05-27] MEDS: ASPIRIN 300 MG SUPP RECTAL SCH (08:52)
[2018-05-27] MEDS: CLOPIDOGREL 75 MG TABLET PO SCH (08:54)
[2018-05-27] MEDS: ENOXAPARIN 40 MG/0.4 ML SYRINGE SUBCUT SCH (08:54)
[2018-05-27] MEDS: NICOTINE 21 MG/24 HR PATCH TRANSDERM SCH (08:54)
[2018-05-27] MEDS: ONDANSETRON 4 MG/2 ML VIAL IV PRN (09:10)
[2018-05-27] MEDS ORDERED: ACETAMINOPHEN 650 MG SUPP RECTAL PRN (15:53)
[2018-05-27] MEDS ORDERED: ALBUTEROL/IPRATROPIUM 3 ML NEB RESP TX PRN (18:27)
[2018-05-27] MEDS: ROSUVASTATIN 20 MG TABLET PO SCH (20:28)
[2018-05-28] MEDS: LABETALOL 20 MG/4 ML SYRINGE IV PRN (04:39)
[2018-05-28] MEDS ORDERED: MORPHINE 4 MG/1 ML VIAL IV PRN (05:08)
[2018-05-28] MEDS ORDERED: ASPIRIN 325 MG TABLET ONE (05:11)
[2018-05-28] MEDS: NITROGLYCERIN SL 0.4 MG TABLET SL PRN ×4 (05:12→14:36)
[2018-05-28] MEDS: POTASSIUM CHLORIDE INJ 10 MEQ in SODIUM CHLORIDE 0.45% 1,000 ML IV SCH ×2 (05:18→14:43)
[2018-05-28 05:30] LABS: Basophils # 0.1 10*3/uL (0.0-0.2); Basophils % 0.7 % (0.0-0.8); Eosinophils # 0.3 10*3/uL (0.0-0.87); Eosinophils % 4.5 % (0.00-10.9); Hematocrit 42.2 VOL% (35.7-47.0); Hemoglobin 13.4 GM/DL (12.0-16.0); Immature Granulocytes % 0.3 %; Immature Granulocytes Absolute 0.02 #; Lymphocytes # 2.3 10*3/uL (1.4-4.0); Mean Corpuscular HGB Conc 31.8 GM/DL (32-36); Mean Corpuscular Hemoglobin 28 PG (27-34); Mean Platelet Volume 8.7 FL (9.6-12.0); Monocytes # 0.7 10*3/uL (0.11-0.8); Monocytes % 10.1 % (1.7-12.7); Neutrophils # 3.4 10*3/uL (1.4-7.4); Neutrophils % 50.4 % (38.7-73.9); Platelet Count 312 T/CUMM (130-400); Red Blood Count 4.85 MC/CUMM (3.8-5.5); Red Cell Distribution Width 12.7 % (9.3-17.3); White Blood Count 6.7 T/CUMM (4-12)
[2018-05-28] MEDS ORDERED: MORPHINE 4 MG/1 ML VIAL IM ONE (05:30)
[2018-05-28] MEDS ORDERED: ASPIRIN CHEW 81 MG TABLET PO ONE (05:30)
[2018-05-28 05:53] LABS: Albumin 3.4 G/DL (3.4-5.0); Bilirubin,Total 0.6 MG/DL (0.2-1.0); Calcium 8.3 MG/DL (8.5-10.1); Osmolality,Calculated 283.1 MOS/KG (273-304); Potassium 3.4 MMOL/L (3.5-5.1)
[2018-05-28] MEDS: ASPIRIN 300 MG SUPP RECTAL SCH (08:35)
[2018-05-28] MEDS: CLOPIDOGREL 75 MG TABLET PO SCH (08:37)
[2018-05-28] MEDS: NICOTINE 21 MG/24 HR PATCH TRANSDERM SCH (08:37)
[2018-05-28] MEDS: ENOXAPARIN 40 MG/0.4 ML SYRINGE SUBCUT SCH (08:37)
[2018-05-28] MEDS ORDERED: POTASSIUM CHLORIDE 20 MEQ TABLET PO ONE (11:35)
[2018-05-28] MEDS ORDERED: diphenhydrAMINE CAP 25 MG CAPSULE PO PRN (12:23)
[2018-05-28] MEDS: METOPROLOL TARTRATE 25 MG TABLET PO SCH ×2 (13:02→21:08)
[2018-05-28] MEDS: ROSUVASTATIN 20 MG TABLET PO SCH (21:08)
[2018-05-29] MEDS: POTASSIUM CHLORIDE INJ 10 MEQ in SODIUM CHLORIDE 0.45% 1,000 ML IV SCH ×2 (00:51→19:53)
[2018-05-29 07:27] LABS: Calcium 8.6 MG/DL (8.5-10.1); Osmolality,Calculated 283.1 MOS/KG (273-304); Potassium 4.2 MMOL/L (3.5-5.1)
[2018-05-29] MEDS: ENOXAPARIN 40 MG/0.4 ML SYRINGE SUBCUT SCH (08:34)
[2018-05-29] MEDS: CLOPIDOGREL 75 MG TABLET PO SCH (08:34)
[2018-05-29] MEDS: NICOTINE 21 MG/24 HR PATCH TRANSDERM SCH (08:34)
[2018-05-29] MEDS: METOPROLOL TARTRATE 25 MG TABLET PO SCH ×2 (08:34→21:17)
[2018-05-29] MEDS ORDERED: amLODIPine 5 MG TABLET PO SCH (09:00)
[2018-05-29] MEDS: NITROGLYCERIN SL 0.4 MG TABLET SL PRN ×2 (09:57→17:18)
[2018-05-29] MEDS: LOSARTAN 50 MG TABLET PO SCH ×2 (11:55→21:17)
[2018-05-29] MEDS: hydrALAZINE 20 MG/1 ML VIAL IV PRN (16:52)
[2018-05-29] MEDS ORDERED: METOPROLOL TARTRATE 5 MG/5 ML VIAL IV ONE (17:22)
[2018-05-29] MEDS ORDERED: MORPHINE 4 MG/1 ML VIAL IV ONE (17:23)
[2018-05-29] MEDS ORDERED: ALUM/MAG/SIMETH/LIDO VISC 1:1 30 ML BOTTLE PO ONE (17:23)
[2018-05-29] MEDS ORDERED: NITROGLYCERIN 2% OINT 1 INCH/GM PACK TOP ONE (17:23)
[2018-05-29] MEDS ORDERED: ASPIRIN CHEW 81 MG TABLET PO ONE (17:23)
[2018-05-29] MEDS ORDERED: MORPHINE 4 MG/1 ML VIAL ONE (17:25)
[2018-05-29] MEDS: ASPIRIN 300 MG SUPP RECTAL SCH (19:53)
[2018-05-29] MEDS: ROSUVASTATIN 20 MG TABLET PO SCH (21:17)
[2018-05-29] MEDS: amLODIPine 5 MG TABLET PO SCH (21:17)
[2018-05-30] MEDS: ONDANSETRON 4 MG/2 ML VIAL IV PRN (03:58)
[2018-05-30 04:58] LABS: Basophils % 0.4 % (0.0-0.8); Eosinophils # 0.3 10*3/uL (0.0-0.87); Eosinophils % 2.6 % (0.00-10.9); Hematocrit 44.3 VOL% (35.7-47.0); Hemoglobin 14.1 GM/DL (12.0-16.0); Immature Granulocytes % 0.4 %; Immature Granulocytes Absolute 0.04 #; Lymphocytes # 2.5 10*3/uL (1.4-4.0); Lymphocytes % 23.5 % (21.3-54.2); Mean Corpuscular HGB Conc 31.8 GM/DL (32-36); Mean Corpuscular Hemoglobin 28 PG (27-34); Mean Corpuscular Volume 86.5 FL (87-102); Mean Platelet Volume 8.8 FL (9.6-12.0); Monocytes # 1.1 10*3/uL (0.11-0.8); Neutrophils # 6.8 10*3/uL (1.4-7.4); Neutrophils % 63.1 % (38.7-73.9); Platelet Count 336 T/CUMM (130-400); Red Blood Count 5.12 MC/CUMM (3.8-5.5); Red Cell Distribution Width 12.8 % (9.3-17.3); White Blood Count 10.7 T/CUMM (4-12)
[2018-05-30 05:37] LABS: Calcium 8.7 MG/DL (8.5-10.1); Osmolality,Calculated 281.4 MOS/KG (273-304); Potassium 3.9 MMOL/L (3.5-5.1)
[2018-05-30] MEDS: ASPIRIN 300 MG SUPP RECTAL SCH (09:55)
[2018-05-30] MEDS: CLOPIDOGREL 75 MG TABLET PO SCH (10:15)
[2018-05-30] MEDS: METOPROLOL TARTRATE 25 MG TABLET PO SCH ×2 (10:15→20:22)
[2018-05-30] MEDS: LOSARTAN 50 MG TABLET PO SCH ×2 (10:16→20:22)
[2018-05-30] MEDS: amLODIPine 5 MG TABLET PO SCH ×2 (10:16→20:22)
[2018-05-30] MEDS: NICOTINE 21 MG/24 HR PATCH TRANSDERM SCH (10:19)
[2018-05-30] MEDS: ENOXAPARIN 40 MG/0.4 ML SYRINGE SUBCUT SCH (10:21)
[2018-05-30] MEDS ORDERED: hydrALAZINE 25 MG TABLET PO SCH (15:00)
[2018-05-30] MEDS ORDERED: hydrALAZINE 10 MG TABLET PO SCH (15:00)
[2018-05-30] MEDS: ROSUVASTATIN 20 MG TABLET PO SCH (20:22)
[2018-05-31] MEDS: ASPIRIN EC 81 MG TABLET PO SCH (08:50)
[2018-05-31] MEDS: hydrALAZINE 20 MG/1 ML VIAL IV PRN (10:05)
[2018-05-31] MEDS: METOPROLOL TARTRATE 25 MG TABLET PO SCH ×2 (10:12→21:16)
[2018-05-31] MEDS: CLOPIDOGREL 75 MG TABLET PO SCH (10:12)
[2018-05-31] MEDS: amLODIPine 5 MG TABLET PO SCH ×2 (10:14→21:16)
[2018-05-31] MEDS: LOSARTAN 50 MG TABLET PO SCH ×2 (10:14→21:16)
[2018-05-31] MEDS: ENOXAPARIN 40 MG/0.4 ML SYRINGE SUBCUT SCH (10:15)
[2018-05-31] MEDS: NICOTINE 21 MG/24 HR PATCH TRANSDERM SCH (10:16)
[2018-05-31] MEDS: NITROGLYCERIN SL 0.4 MG TABLET SL PRN (11:02)
[2018-05-31] MEDS ORDERED: MORPHINE 10 MG/1 ML VIAL ONE (11:12)
[2018-05-31] MEDS ORDERED: KETOROLAC 30 MG/1 ML VIAL IV PRN (11:19)
[2018-05-31] MEDS ORDERED: ENOXAPARIN 100 MG/ML SYRINGE SUBCUT ONE (11:19)
[2018-05-31] MEDS ORDERED: ALPRAZolam 0.5 MG TABLET PO PRN ×2 (11:19→11:24)
[2018-05-31] MEDS ORDERED: MORPHINE 4 MG/1 ML VIAL IV ONE (11:19)
[2018-05-31 11:32] LABS: Basophils # 0.1 10*3/uL (0.0-0.2); Basophils % 0.5 % (0.0-0.8); Eosinophils # 0.3 10*3/uL (0.0-0.87); Eosinophils % 2.6 % (0.00-10.9); Hematocrit 45.9 VOL% (35.7-47.0); Hemoglobin 14.6 GM/DL (12.0-16.0); Immature Granulocytes % 0.3 %; Immature Granulocytes Absolute 0.04 #; Lymphocytes # 2.4 10*3/uL (1.4-4.0); Lymphocytes % 19.9 % (21.3-54.2); Mean Corpuscular HGB Conc 31.8 GM/DL (32-36); Mean Corpuscular Hemoglobin 28 PG (27-34); Mean Corpuscular Volume 86.6 FL (87-102); Mean Platelet Volume 8.8 FL (9.6-12.0); Monocytes % 8.1 % (1.7-12.7); Neutrophils # 8.1 10*3/uL (1.4-7.4); Neutrophils % 68.6 % (38.7-73.9); Platelet Count 328 T/CUMM (130-400); White Blood Count 11.8 T/CUMM (4-12)
[2018-05-31 11:33] LABS: ABG Base Excess 0.6 MMOL/L (-2.5-2.5); ABG HCO3 24.1 MMOL/L (20-26); ABG Oxygen Saturation 99.2 % (95-100); ABG PCO2 35.4 MM HG (35-48); ABG PH 7.451 (7.35-7.45); ABG PO2 196.9 MM HG (80-95); ABG TCO2 25.2 MMOL/L (23-27)
[2018-05-31] MEDS ORDERED: SODIUM CHLORIDE 0.65% NASAL SPRAY 45 ML BOTTLE BOTH NARES PRN (11:41)
[2018-05-31 12:36] LABS: Alanine Aminotransferase 45 U/L (13-56); Albumin 3.4 G/DL (3.4-5.0); Alkaline Phosphatase 79 U/L (45-117); Aspartate Amino Transferase 29 U/L (0-37); Blood Urea Nitrogen 22 MG/DL (7-18); Calcium 8.5 MG/DL (8.5-10.1); Glucose 88 MG/DL (74-106); Osmolality,Calculated 284.1 MOS/KG (273-304); Sodium 142 MMOL/L (136-145)
[2018-05-31 12:38] LABS: Troponin I 0.075 NG/ML (0.00-0.045)
[2018-05-31] MEDS: ALBUTEROL/IPRATROPIUM 3 ML NEB RESP TX SCH ×2 (15:43→19:48)
[2018-05-31] MEDS: ROSUVASTATIN 20 MG TABLET PO SCH (21:16)
[2018-06-01] MEDS: ALBUTEROL/IPRATROPIUM 3 ML NEB RESP TX SCH ×7 (00:30→22:52)
[2018-06-01] MEDS: ASPIRIN EC 81 MG TABLET PO SCH (09:04)
[2018-06-01] MEDS: amLODIPine 5 MG TABLET PO SCH ×2 (09:04→21:00)
[2018-06-01] MEDS: ENOXAPARIN 40 MG/0.4 ML SYRINGE SUBCUT SCH (09:04)
[2018-06-01] MEDS: LOSARTAN 50 MG TABLET PO SCH ×2 (09:04→21:00)
[2018-06-01] MEDS: METOPROLOL TARTRATE 25 MG TABLET PO SCH ×2 (09:04→21:00)
[2018-06-01] MEDS: NICOTINE 21 MG/24 HR PATCH TRANSDERM SCH (09:04)
[2018-06-01] MEDS: CLOPIDOGREL 75 MG TABLET PO SCH (09:08)
[2018-06-01] MEDS: ONDANSETRON 4 MG/2 ML VIAL IV PRN (18:58)
[2018-06-01] MEDS: ROSUVASTATIN 20 MG TABLET PO SCH (21:00)
[2018-06-02] MEDS: ALBUTEROL/IPRATROPIUM 3 ML NEB RESP TX SCH ×6 (03:09→22:50)
[2018-06-02] MEDS: ENOXAPARIN 40 MG/0.4 ML SYRINGE SUBCUT SCH (09:12)
[2018-06-02] MEDS: ASPIRIN EC 81 MG TABLET PO SCH (09:15)
[2018-06-02] MEDS: LOSARTAN 50 MG TABLET PO SCH ×2 (09:15→21:00)
[2018-06-02] MEDS: CLOPIDOGREL 75 MG TABLET PO SCH (09:16)
[2018-06-02] MEDS: METOPROLOL TARTRATE 25 MG TABLET PO SCH ×2 (09:16→21:00)
[2018-06-02] MEDS: amLODIPine 5 MG TABLET PO SCH ×2 (09:17→21:00)
[2018-06-02] MEDS: NICOTINE 21 MG/24 HR PATCH TRANSDERM SCH (09:18)
[2018-06-02] MEDS: hydrOXYzine HCL 10 MG TABLET PO PRN (14:56)
[2018-06-02] MEDS: ROSUVASTATIN 20 MG TABLET PO SCH (21:00)
[2018-06-03] MEDS: ALBUTEROL/IPRATROPIUM 3 ML NEB RESP TX SCH ×6 (02:49→23:46)
[2018-06-03] MEDS: LOSARTAN 50 MG TABLET PO SCH ×2 (09:07→20:27)
[2018-06-03] MEDS: ENOXAPARIN 40 MG/0.4 ML SYRINGE SUBCUT SCH (09:07)
[2018-06-03] MEDS: ASPIRIN EC 81 MG TABLET PO SCH (09:07)
[2018-06-03] MEDS: NICOTINE 21 MG/24 HR PATCH TRANSDERM SCH (09:07)
[2018-06-03] MEDS: CLOPIDOGREL 75 MG TABLET PO SCH (09:07)
[2018-06-03] MEDS: amLODIPine 5 MG TABLET PO SCH ×2 (09:07→20:27)
[2018-06-03] MEDS: METOPROLOL TARTRATE 25 MG TABLET PO SCH ×2 (09:07→20:27)
[2018-06-03] MEDS: MORPHINE 4 MG/1 ML VIAL IV PRN ×2 (09:28→16:59)
[2018-06-03] MEDS: ROSUVASTATIN 20 MG TABLET PO SCH (20:27)
[2018-06-04] MEDS: ALBUTEROL/IPRATROPIUM 3 ML NEB RESP TX SCH ×5 (03:55→19:52)
[2018-06-04] MEDS: CLOPIDOGREL 75 MG TABLET PO SCH (09:14)
[2018-06-04] MEDS: METOPROLOL TARTRATE 25 MG TABLET PO SCH ×2 (09:14→20:56)
[2018-06-04] MEDS: amLODIPine 5 MG TABLET PO SCH ×2 (09:14→20:56)
[2018-06-04] MEDS: ENOXAPARIN 40 MG/0.4 ML SYRINGE SUBCUT SCH (09:14)
[2018-06-04] MEDS: ASPIRIN EC 81 MG TABLET PO SCH (09:14)
[2018-06-04] MEDS: LOSARTAN 50 MG TABLET PO SCH ×2 (09:14→20:56)
[2018-06-04] MEDS: NICOTINE 21 MG/24 HR PATCH TRANSDERM SCH (09:14)
[2018-06-04] MEDS: MORPHINE 4 MG/1 ML VIAL IV PRN ×2 (10:10→16:46)
[2018-06-04] MEDS: hydrALAZINE 20 MG/1 ML VIAL IV PRN (16:47)
[2018-06-04] MEDS: hydrOXYzine HCL 10 MG TABLET PO PRN ×2 (17:00→20:56)
[2018-06-04] MEDS: ROSUVASTATIN 20 MG TABLET PO SCH (20:56)
[2018-06-05] MEDS: ALBUTEROL/IPRATROPIUM 3 ML NEB RESP TX SCH ×6 (00:19→19:21)
[2018-06-05] MEDS: ASPIRIN EC 81 MG TABLET PO SCH (09:05)
[2018-06-05] MEDS: CLOPIDOGREL 75 MG TABLET PO SCH (09:05)
[2018-06-05] MEDS: LOSARTAN 50 MG TABLET PO SCH ×2 (09:05→21:44)
[2018-06-05] MEDS: METOPROLOL TARTRATE 25 MG TABLET PO SCH ×2 (09:05→21:44)
[2018-06-05] MEDS: NICOTINE 21 MG/24 HR PATCH TRANSDERM SCH (09:06)
[2018-06-05] MEDS: ENOXAPARIN 40 MG/0.4 ML SYRINGE SUBCUT SCH (09:06)
[2018-06-05] MEDS: amLODIPine 5 MG TABLET PO SCH ×2 (09:07→21:44)
[2018-06-05] MEDS: hydrOXYzine HCL 10 MG TABLET PO PRN (16:48)
[2018-06-05] MEDS: ROSUVASTATIN 20 MG TABLET PO SCH (21:43)
[2018-06-06] MEDS: ALBUTEROL/IPRATROPIUM 3 ML NEB RESP TX SCH ×4 (01:11→11:00)
[2018-06-06] MEDS: amLODIPine 5 MG TABLET PO SCH ×2 (08:48→21:24)
[2018-06-06] MEDS: ASPIRIN EC 81 MG TABLET PO SCH (08:48)
[2018-06-06] MEDS: METOPROLOL TARTRATE 25 MG TABLET PO SCH ×2 (08:48→21:24)
[2018-06-06] MEDS: LOSARTAN 50 MG TABLET PO SCH ×2 (08:48→21:24)
[2018-06-06] MEDS: CLOPIDOGREL 75 MG TABLET PO SCH (08:48)
[2018-06-06] MEDS: NICOTINE 21 MG/24 HR PATCH TRANSDERM SCH (08:50)
[2018-06-06] MEDS: ENOXAPARIN 40 MG/0.4 ML SYRINGE SUBCUT SCH (08:50)
[2018-06-06] MEDS: ROSUVASTATIN 20 MG TABLET PO SCH (21:24)
[2018-06-07] MEDS: ALBUTEROL/IPRATROPIUM 3 ML NEB RESP TX SCH ×5 (07:19→23:01)
[2018-06-07] MEDS: ASPIRIN EC 81 MG TABLET PO SCH (09:28)
[2018-06-07] MEDS: LOSARTAN 50 MG TABLET PO SCH ×2 (09:28→20:21)
[2018-06-07] MEDS: CLOPIDOGREL 75 MG TABLET PO SCH (09:28)
[2018-06-07] MEDS: ENOXAPARIN 40 MG/0.4 ML SYRINGE SUBCUT SCH (09:28)
[2018-06-07] MEDS: NICOTINE 21 MG/24 HR PATCH TRANSDERM SCH (09:28)
[2018-06-07] MEDS: METOPROLOL TARTRATE 25 MG TABLET PO SCH ×2 (09:28→20:21)
[2018-06-07] MEDS: amLODIPine 5 MG TABLET PO SCH ×2 (09:29→20:21)
[2018-06-07] MEDS: ROSUVASTATIN 20 MG TABLET PO SCH (20:21)
[2018-06-08] MEDS: ALBUTEROL/IPRATROPIUM 3 ML NEB RESP TX SCH ×6 (03:23→19:30)
[2018-06-08] MEDS: LOSARTAN 50 MG TABLET PO SCH ×2 (09:48→20:21)
[2018-06-08] MEDS: ENOXAPARIN 40 MG/0.4 ML SYRINGE SUBCUT SCH (09:49)
[2018-06-08] MEDS: amLODIPine 5 MG TABLET PO SCH ×2 (09:49→20:21)
[2018-06-08] MEDS: NICOTINE 21 MG/24 HR PATCH TRANSDERM SCH (09:49)
[2018-06-08] MEDS: CLOPIDOGREL 75 MG TABLET PO SCH (09:49)
[2018-06-08] MEDS: METOPROLOL TARTRATE 25 MG TABLET PO SCH ×2 (09:49→20:21)
[2018-06-08] MEDS: ASPIRIN EC 81 MG TABLET PO SCH (09:56)
[2018-06-08] MEDS: ROSUVASTATIN 20 MG TABLET PO SCH (20:21)
[2018-06-08 20:44] VITALS: BP 125/57
== END 2018-06-08 21:55 | disposition home health service (06) | DRG 65 ==
LOC: N.ED 21:27 → N.EDINP 05-26 01:14 → SUATTDRO 05-26 01:14 → N.4E 05-26 02:24
PROVIDERS: ADMIT Internal Medicine; ATTEND Internal Medicine

== ENCOUNTER 2019-07-03 20:29 | Observation (INO) ==
[2019-07-03] MEDS ORDERED: ONDANSETRON 4 MG/2 ML VIAL IV STA (20:55)
[2019-07-03] MEDS ORDERED: METOCLOPRAMIDE 10 MG/2 ML VIAL IV STA (20:55)
[2019-07-03] MEDS ORDERED: ASPIRIN 325 MG TABLET PO STA (20:55)
[2019-07-03] MEDS ORDERED: MEPERIDINE 25 MG/1 ML VIAL IV STA (20:55)
[2019-07-03] MEDS ORDERED: hydrALAZINE 20 MG/1 ML VIAL IV STA (20:55)
[2019-07-03 21:06] LABS: Basophils % 0.5 % (0.0-0.8); Eosinophils # 0.3 10*3/uL (0.0-0.87); Eosinophils % 3.5 % (0.00-10.9); Hematocrit 43.2 VOL% (35.7-47.0); Hemoglobin 13.7 GM/DL (12.0-16.0); Immature Granulocytes % 0.2 %; Immature Granulocytes Absolute 0.02 #; Lymphocytes # 2.8 10*3/uL (1.4-4.0); Lymphocytes % 34.6 % (21.3-54.2); Mean Corpuscular HGB Conc 31.7 GM/DL (32-36); Mean Corpuscular Volume 87.1 FL (87-102); Mean Platelet Volume 8.2 FL (9.6-12.0); Monocytes % 9.8 % (1.7-12.7); Neutrophils % 51.4 % (38.7-73.9); Platelet Count 321 T/CUMM (130-400); Red Blood Count 4.96 MC/CUMM (3.8-5.5); Red Cell Distribution Width 12.6 % (9.3-17.3); White Blood Count 8.1 T/CUMM (4-12)
[2019-07-03 21:17] LABS: INR 0.9; PT Patient Result 10.2 SECS (9.6-12.2); Partial Thromboplastin Time 29.9 SECS (20.8-36.0)
[2019-07-03 21:23] LABS: Alanine Aminotransferase 29 U/L (13-56); Albumin 3.5 G/DL (3.4-5.0); Alkaline Phosphatase 81 U/L (45-117); Aspartate Amino Transferase 22 U/L (0-37); Bilirubin,Total < 0.39 MG/DL (0.2-1.0); Blood Urea Nitrogen 14 MG/DL (7-18); CKMB % 4.8 %; Calcium 8.9 MG/DL (8.5-10.1); Glucose 112 MG/DL (74-106); Osmolality,Calculated 276.7 MOS/KG (273-304); Total Protein 7.8 G/DL (6.4-8.3)
[2019-07-03 21:31] LABS: Estimated Glom Filtration Rate 0 ML/MIN
[2019-07-03 21:42] LABS: Apearance,Urine Slightly Hazy (Clear); Bilirubin,Urine Negative (Negative); Blood, Urine Negative (Negative); Glucose,Urine (UA) Negative (Negative); Ketones,Urine Negative (Negative); Nitrite,Urine Negative (Negative); Protein,Urine Negative; RBC,Urine 2 /HPF (0-4); Squamous Epithelial Cell,Urine Occasional /HPF (0-10); Urine Color Yellow (Yellow); Urine Specific Gravity 1.013 (1.001-1.035); Urine Urobilinogen < 2.0 EU/DL (0.2-1.0)
[2019-07-03 21:48] LABS: Barbiturates Screen,Urine Negative (Negative); Benzodiazepines Screen,Urine Negative (Negative); Cannabinoid Screen,Urine Negative (Negative); Opiate Screen,Urine Negative (Negative); Phencyclidine Screen,Urine Negative (Negative)
[2019-07-03] MEDS ORDERED: METOPROLOL TARTRATE 5 MG/5 ML VIAL IV STA (22:15)
[2019-07-04] MEDS ORDERED: SODIUM CHLORIDE 0.65% NASAL SPRAY 45 ML BOTTLE BOTH NARES PRN (00:31)
[2019-07-04] MEDS ORDERED: ALPRAZolam 0.25 MG TABLET PO PRN (00:31)
[2019-07-04] MEDS ORDERED: hydrALAZINE 20 MG/1 ML VIAL IV PRN (00:31)
[2019-07-04] MEDS ORDERED: ONDANSETRON 4 MG/2 ML VIAL IV PRN (00:31)
[2019-07-04] MEDS: ENOXAPARIN 40 MG/0.4 ML SYRINGE SUBCUT SCH (04:13)
[2019-07-04] MEDS: NICOTINE 21 MG/24 HR PATCH TRANSDERM SCH ×2 (04:35→08:20)
[2019-07-04 05:29] LABS: Basophils % 0.5 % (0.0-0.8); Eosinophils # 0.3 10*3/uL (0.0-0.87); Eosinophils % 3.6 % (0.00-10.9); Hematocrit 42.5 VOL% (35.7-47.0); Hemoglobin 13.6 GM/DL (12.0-16.0); Immature Granulocytes % 0.3 %; Immature Granulocytes Absolute 0.02 #; Lymphocytes # 2.5 10*3/uL (1.4-4.0); Lymphocytes % 33.7 % (21.3-54.2); Mean Corpuscular Volume 86.7 FL (87-102); Mean Platelet Volume 8.5 FL (9.6-12.0); Monocytes % 9.9 % (1.7-12.7); Platelet Count 334 T/CUMM (130-400); Red Cell Distribution Width 12.6 % (9.3-17.3); White Blood Count 7.3 T/CUMM (4-12)
[2019-07-04 05:42] LABS: Calcium 8.9 MG/DL (8.5-10.1); Osmolality,Calculated 272.8 MOS/KG (273-304)
[2019-07-04] MEDS: METOPROLOL TARTRATE 25 MG TABLET PO SCH ×2 (08:16→21:02)
[2019-07-04] MEDS: ASPIRIN EC 81 MG TABLET PO SCH (08:16)
[2019-07-04] MEDS: LOSARTAN 50 MG TABLET PO SCH ×2 (08:16→21:01)
[2019-07-04] MEDS: CLOPIDOGREL 75 MG TABLET PO SCH (08:16)
[2019-07-04] MEDS: amLODIPine 5 MG TABLET PO SCH ×2 (08:17→21:02)
[2019-07-04] MEDS ORDERED: ATORVASTATIN 80 MG TABLET PO SCH (21:00)
[2019-07-05] MEDS: ACETAMINOPHEN 325 MG TABLET PO PRN ×3 (00:48→15:00)
[2019-07-05] MEDS: ENOXAPARIN 40 MG/0.4 ML SYRINGE SUBCUT SCH (00:50)
[2019-07-05] MEDS: DOCUSATE SODIUM 100 MG CAPSULE PO PRN ×2 (05:48→09:34)
[2019-07-05] MEDS: CLOPIDOGREL 75 MG TABLET PO SCH (09:34)
[2019-07-05] MEDS: LOSARTAN 50 MG TABLET PO SCH (09:34)
[2019-07-05] MEDS: NICOTINE 21 MG/24 HR PATCH TRANSDERM SCH (09:34)
[2019-07-05] MEDS: METOPROLOL TARTRATE 25 MG TABLET PO SCH (09:34)
[2019-07-05] MEDS: ASPIRIN EC 81 MG TABLET PO SCH (09:34)
[2019-07-05] MEDS: amLODIPine 5 MG TABLET PO SCH (09:34)
[2019-07-05 14:51] VITALS: BP 148/60
== END 2019-07-05 15:31 | disposition home or self-care (01) ==
LOC: N.EDINP 20:29 → N.ED 20:29 → N.EDINP 07-04 00:26 → N.ICU 07-04 00:32 → N.TELES 07-04 14:41
PROVIDERS: ADMIT Internal Medicine; ATTEND Internal Medicine